=== PATIENT | male | born 1940 | race Caucasian/White ===

== ENCOUNTER 2017-12-25 15:24 | Emergency (ER) | payer BC ==
[2017-12-25] MEDS ORDERED: Meclizine HCl 25 MG TAB ONE (15:58)
[2017-12-25 15:59] LABS: Mean Corpuscular HGB CONC 34.8 g/dL (32.0-36.0); Mean Corpuscular Hemoglobin 36.5 pg (27.0-31.0); Mean Platelet Volume 6.4 fL (7.4-10.4); Platelet Count 135 thou/uL (130-400); RBC Distribution Width 11.7 % (11.5-14.5); Red Blood Cell (RBC) Count 3.29 mill/uL (4.70-6.10); White Blood Cell (WBC) Count 3.2 thou/uL (4.8-10.8)
[2017-12-25 16:17] LABS: ALT (SGPT) 20 U/L (8-55); AST (SGOT) 21 U/L (5-34); Albumin 3.9 g/dL (3.4-4.8); Alkaline Phosphatase 62 U/L (40-150); Anion Gap 13 mmol/L (10-20); BUN (Urea Nitrogen) 21 mg/dL (8.4-25.7); Bilirubin, Total 0.3 mg/dL (0.2-1.2); CK (CPK) 108 U/L (30-200); Calc. Creatinine Clearance 0 mL/min (70-130); Carbon Dioxide 20 mmol/L (23-31); Chloride 107 mmol/L (98-107); Estimated GFR-MDRD Greater than 90; Globulin 2.6 g/dL (2.4-3.5); Glucose 98 mg/dL (83-110); Protein, Total 6.5 g/dL (5.8-8.1); Sodium 136 mmol/L (136-145)
[2017-12-25 16:20] LABS: #Eosinphils 0.1 thou/uL (0.0-0.7); #Lymphocytes 1.1 thou/uL (1.20-3.40); #Monocytes 0.4 thou/uL (0.11-0.59); #Neutrophils 1.6 thou/uL (1.40-6.50); %Basophils 1.3 % (0.0-1.0); %Eosinophils 2.4 % (0.0-10.0); %Lymphocytes 34.8 % (21.0-51.0); %Monocytes 11.4 % (0.0-10.0); %Neutrophils 50.2 % (42.0-75.0); MDiff Complete? YES; Macrocytosis SLIGHT = 6-15 cells (100X) (0-5/hpf); PLT Morphology Comment Appears Adequate
--- NOTE | 2017-12-25 17:01 | CT ---
CT OF THE BRAIN WITHOUT CONTRAST: 12/25/17 COMPARISON: None. HISTORY: Dizziness that began this morning. Symptoms of stroke. COMPARISON: 01/14/05. TECHNIQUE: Multiple contiguous axial images were obtained in a CT of the brain without contrast. FINDINGS: There are a few subtle scattered hypodensities in the subcortical and periventricular white matter, l ikely secondary to small vessel ischemic disease. No large confluent infarction is seen. There is no evidence of hydrocephalus, intracranial hemorrhage, or extra-axial fluid collection. The calvarium and overlying soft tissues are unremarkable. The visualized paranasal sinuses and masto id air cells are well aerated. IMPRESSION: No evidence of acute intracranial abnormality. POS: [facility]
== END 2017-12-25 17:40 | disposition home or self-care (01) ==
LOC: ERS 15:24
DX: R42 Dizziness and giddiness (principal); Z85.07 Personal history of malignant neoplasm of pancreas; F41.9 Anxiety disorder, unspecified; Z79.899 Other long term (current) drug therapy
CPT/HCPCS: 36415; 70450; 80053; 82550; 85025; 93005

== ENCOUNTER 2018-03-15 13:44 | Outpatient (CLI) | payer BC ==
--- NOTE | 2018-03-15 15:05 | RAD ---
CHEST PA AND LATERAL: Date: 03/15/18 HISTORY: 77-year-old male with history of dyspnea. COMPARISON: 10/06/13. FINDINGS: Heart size is within normal limits. Increased linear and interstitial markings are noted bilaterally. There is no cardiomegaly. IMPRESSION: Stable appearing chronic lung changes. No acute intrathoracic disease. Atherosclerosis of aorta. POS: [facility]
== END 2018-03-15 13:45 | disposition home or self-care (01) ==
LOC: RAD 13:44
PROVIDERS: ATTEND Internal Medicine
DX: R06.00 Dyspnea, unspecified (principal); I70.0 Atherosclerosis of aorta
CPT/HCPCS: 71046

== ENCOUNTER 2018-04-11 17:00 | Outpatient (CLI) | payer BC | END 2018-04-11 17:01 | disposition home or self-care (01) | LOC: SLEEPLAB 17:00 | PROVIDERS: ATTEND Orthopaedic Surgery Sports Medicine | DX: G47.33 Obstructive sleep apnea (adult) (pediatric) (principal); E66.9 Obesity, unspecified; R06.83 Snoring; R51 Headache; R53.83 Other fatigue; K21.9 Gastro-esophageal reflux disease without esophagitis; R35.1 Nocturia; Z68.29 Body mass index [BMI] 29.0-29.9, adult | CPT/HCPCS: 95806 ==

== ENCOUNTER 2018-05-19 09:02 | Outpatient (CLI) | payer BC | END 2018-05-19 09:03 | disposition home or self-care (01) | LOC: CP 09:02 | PROVIDERS: ATTEND Internal Medicine | DX: R06.09 Other forms of dyspnea (principal); G47.33 Obstructive sleep apnea (adult) (pediatric) | CPT/HCPCS: 94060; 94727; 94729 ==

== ENCOUNTER 2019-06-08 13:16 | Outpatient (CLI) | payer BC ==
[2019-06-08 14:56] LABS: #Eosinphils 0.1 thou/uL (0.0-0.7); #Lymphocytes 1.3 thou/uL (1.20-3.40); #Monocytes 0.3 thou/uL (0.11-0.59); #Neutrophils 2.3 thou/uL (1.40-6.50); %Basophils 0.8 % (0.0-1.0); %Eosinophils 1.8 % (0.0-10.0); %Lymphocytes 31.7 % (21.0-51.0); %Monocytes 8.7 % (0.0-10.0); Hemoglobin 11.7 g/dL (14.0-18.0); Mean Corpuscular HGB CONC 33.9 g/dL (32.0-36.0); Mean Platelet Volume 6.9 fL (7.4-10.4); Platelet Count 155 thou/uL (130-400); RBC Distribution Width 11.4 % (11.5-14.5); Red Blood Cell (RBC) Count 3.24 mill/uL (4.70-6.10)
[2019-06-08 15:05] LABS: ALT (SGPT) 17 U/L (8-55); AST (SGOT) 19 U/L (5-34); Albumin 4.1 g/dL (3.4-4.8); Alkaline Phosphatase 75 U/L (40-110); Anion Gap 10 mmol/L (10-20); BUN (Urea Nitrogen) 23 mg/dL (8.4-25.7); Bilirubin, Total 0.3 mg/dL (0.2-1.2); Calc. Creatinine Clearance 0 mL/min (70-130); Calcium 8.9 mg/dL (7.8-10.44); Carbon Dioxide 27 mmol/L (23-31); Chloride 104 mmol/L (98-107); Estimated GFR-MDRD 70; Globulin 2.6 g/dL (2.4-3.5); Glucose 140 mg/dL (83-110); Potassium 4.4 mmol/L (3.5-5.1); Protein, Total 6.7 g/dL (5.8-8.1); Sodium 137 mmol/L (136-145)
== END 2019-06-08 13:17 | disposition home or self-care (01) ==
LOC: LABBT 13:16
PROVIDERS: ATTEND Internal Medicine Cardiovascular Disease
DX: Z01.812 Encounter for preprocedural laboratory examination (principal); R06.02 Shortness of breath
CPT/HCPCS: 80053; 85025

== ENCOUNTER → 2019-06-09 | Day surgery (SDC) | payer BC ==
[2019-06-08 13:30] VITALS: BMI 22.8
[~2019-06-09] MED LIST: Fentanyl 100 MCG/2 ML VIAL ONE; Heparin (Artline) 1,000 ML ONE; Midazolam HCl 2 mg/2 ml Vial ONE
== END ==
LOC: CCL 06:08
PROVIDERS: ATTEND Internal Medicine Cardiovascular Disease
PROC: 4A023N8 Measurement of Cardiac Sampling and Pressure, Bilateral, Percutaneous Approach (ICD-10-PCS; principal; 2019-06-09)
PROC: B2111ZZ Fluoroscopy of Multiple Coronary Arteries using Low Osmolar Contrast (ICD-10-PCS; principal; 2019-06-09)
DX: I25.10 Atherosclerotic heart disease of native coronary artery without angina pectoris (principal); I35.0 Nonrheumatic aortic (valve) stenosis; K21.9 Gastro-esophageal reflux disease without esophagitis; Z79.899 Other long term (current) drug therapy; Z87.891 Personal history of nicotine dependence; Z91.018 Allergy to other foods
CPT/HCPCS: C1769; J1644; J2250; J3010

== ENCOUNTER 2020-08-23 07:42 | Inpatient (IN) | payer BC, MEDICARE ==
[2020-08-23] MEDS ORDERED: Morphine 4 MG/ML VIAL ONE ×2 (08:13→09:29)
[2020-08-23 08:41] LABS: ALT (SGPT) 20 U/L (8-55); AST (SGOT) 25 U/L (5-34); Albumin 3.9 g/dL (3.4-4.8); Alkaline Phosphatase 95 U/L (40-110); Anion Gap 16 mmol/L (10-20); BUN (Urea Nitrogen) 17 mg/dL (8.4-25.7); Bilirubin, Total 0.5 mg/dL (0.2-1.2); Calc. Creatinine Clearance 0 mL/min (70-130); Calcium 8.8 mg/dL (7.8-10.44); Carbon Dioxide 21 mmol/L (23-31); Chloride 103 mmol/L (98-107); Globulin 3.1 g/dL (2.4-3.5); Glucose 188 mg/dL (83-110); Potassium 4.1 mmol/L (3.5-5.1); Sodium 136 mmol/L (136-145)
[2020-08-23 09:19] LABS: #Basophils 0.1 thou/uL (0.0-0.2); #Lymphocytes 0.2 thou/uL (1.20-3.40); #Monocytes 0.5 thou/uL (0.11-0.59); #Neutrophils 5.3 thou/uL (1.40-6.50); %Basophils 1.5 % (0.0-1.0); %Eosinophils 0.2 % (0.0-10.0); %Lymphocytes 2.6 % (21.0-51.0); %Monocytes 8.8 % (0.0-10.0); Hemoglobin 12.3 g/dL (14.0-18.0); MDiff Complete? YES; Macrocytosis SLIGHT = 6-15 cells (100X) (0-5/hpf); Mean Corpuscular Hemoglobin 34.5 pg (27.0-31.0); Mean Platelet Volume 7.3 fL (7.4-10.4); Platelet Count 99 thou/uL (130-400); Platelet Morphology Comment Appears Decreased; Polychromasia SLIGHT = 2-3 cells (100X) (0-2/hpf); RBC Distribution Width 11.8 % (11.5-14.5); Red Blood Cell (RBC) Count 3.56 mill/uL (4.70-6.10); White Blood Cell (WBC) Count 6.1 thou/uL (4.8-10.8)
[2020-08-23] MEDS ORDERED: Lidocaine 1% PF 5 ML VIAL ONE (09:32)
[2020-08-23] MEDS ORDERED: Dexamethasone 20 MG/5 ML VIAL ONE (09:32)
[2020-08-23] MEDS ORDERED: Rocuronium Bromide 10 MG/ML (10ML VIAL) ONE (09:32)
[2020-08-23] MEDS ORDERED: PROPOFOL 200 MG/20 ML VIAL ONE (09:32)
[2020-08-23] MEDS ORDERED: PHENYLEPHRINE-NS 100 MCG/ML 10 ML SYRINGE ONE (09:32)
[2020-08-23] MEDS ORDERED: Ondansetron PF 4 MG/2 ML Vial ONE (09:32)
[2020-08-23] MEDS ORDERED: Esmolol 100 MG/10 ML VIAL ONE (09:32)
[2020-08-23 10:31] LABS: SARS-CoV-2 NAA Rapid Test Not Detected (NotDetected)
[2020-08-23] MEDS ORDERED: CEFAZOLIN 2 GM in Premix Bag 1 BAG IVPB SCH (10:45)
[2020-08-23] MEDS ORDERED: Fentanyl 100 MCG/2 ML VIAL ONE ×4 (10:56→18:56)
[2020-08-23] MEDS ORDERED: Ondansetron PF 4 MG/2 ML Vial IVP PRN (11:03)
[2020-08-23] MEDS ORDERED: Ondansetron ODT 4 MG TAB PO PRN (11:03)
[2020-08-23] MEDS ORDERED: Dextrose 50% Abboject 50 ML SYRINGE SLOW IVP PRN (11:03)
[2020-08-23] MEDS ORDERED: hydrALAZINE 20 MG/ML VIAL SLOW IVP PRN (11:03)
[2020-08-23] MEDS ORDERED: Morphine 2 MG/ML VIAL SLOW IVP PRN (11:03)
[2020-08-23] MEDS ORDERED: Dextrose 5% in Water 1,000 ML IV PRN (11:03)
[2020-08-23 12:04] VITALS: BMI 26.6
[2020-08-23] MEDS: traMADol HCl 50 MG TAB PO SCH ×3 (13:17→23:32)
[2020-08-23] MEDS: Ibuprofen 600 MG TAB PO SCH ×2 (13:55→21:09)
[2020-08-23] MEDS: Gabapentin 300 MG CAP PO SCH ×2 (14:03→20:12)
[2020-08-23] MEDS ORDERED: Morphine 2 MG/ML VIAL SLOW IVP SCH (14:37)
[2020-08-23] MEDS ORDERED: HYDROcodone/Acetaminophen 10/325 mg Tablet PO PRN ×2 (15:17→21:38)
[2020-08-23] MEDS ORDERED: SUGAMMADEX SODIUM 200 MG/2 ML VIAL ONE (17:53)
[2020-08-23] MEDS: Pancrelipase DR 12,000 1 CAP PO SCH (18:05)
[2020-08-23] MEDS: Atorvastatin Calcium 20 MG TAB PO SCH (20:12)
[2020-08-23] MEDS: Famotidine 20 MG TAB PO SCH (20:12)
[2020-08-23] MEDS: CEFAZOLIN 2 GM in Premix Bag 1 BAG IVPB SCH (21:07)
[2020-08-23] MEDS: Acetaminophen 325 MG TAB PO PRN (21:10)
[2020-08-23] MEDS: traMADol HCl 50 MG TAB PO PRN (23:32)
[2020-08-24] MEDS: CEFAZOLIN 2 GM in Premix Bag 1 BAG IVPB SCH (05:28)
[2020-08-24] MEDS: traMADol HCl 50 MG TAB PO SCH ×4 (05:29→19:07)
[2020-08-24] MEDS: Ibuprofen 600 MG TAB PO SCH ×3 (05:29→21:05)
[2020-08-24 05:30] LABS: #Lymphocytes 0.4 thou/uL (1.20-3.40); #Monocytes 0.6 thou/uL (0.11-0.59); %Eosinophils 0.1 % (0.0-10.0); %Lymphocytes 6.3 % (21.0-51.0); %Monocytes 9.6 % (0.0-10.0); Hemoglobin 10.1 g/dL (14.0-18.0); Mean Corpuscular Hemoglobin 35.3 pg (27.0-31.0); Mean Platelet Volume 7.4 fL (7.4-10.4); Platelet Count 88 thou/uL (130-400); RBC Distribution Width 11.7 % (11.5-14.5); Red Blood Cell (RBC) Count 2.86 mill/uL (4.70-6.10)
[2020-08-24 05:50] LABS: Anion Gap 12 mmol/L (10-20); BUN (Urea Nitrogen) 20 mg/dL (8.4-25.7); Calc. Creatinine Clearance 72 mL/min (70-130); Calcium 7.9 mg/dL (7.8-10.44); Carbon Dioxide 27 mmol/L (23-31); Chloride 101 mmol/L (98-107); Glucose 237 mg/dL (83-110); Magnesium 2.1 mg/dL (1.6-2.6); Sodium 136 mmol/L (136-145)
[2020-08-24] MEDS: Pancrelipase DR 12,000 1 CAP PO SCH ×3 (08:33→15:24)
[2020-08-24] MEDS: Polyethylene Glycol 3350 17 GM Packet PO SCH (08:33)
[2020-08-24] MEDS: Gabapentin 300 MG CAP PO SCH ×3 (08:34→21:03)
[2020-08-24] MEDS: Multivit, Therapeutic 1 TAB PO SCH (08:34)
[2020-08-24] MEDS: Furosemide 20 MG TAB PO SCH (08:34)
[2020-08-24] MEDS: Famotidine 20 MG TAB PO SCH (08:35)
[2020-08-24] MEDS ORDERED: Linaclotide [Linzess] 290 MCG Capsule PO SCH (09:00)
[2020-08-24] MEDS: traMADol HCl 50 MG TAB PO PRN (19:07)
[2020-08-24] MEDS ORDERED: Verapamil 120 MG TAB PO SCH (21:00)
[2020-08-24] MEDS: Aspirin 81 mg Enteric Coated Tablet PO SCH (21:03)
[2020-08-24] MEDS: Atorvastatin Calcium 20 MG TAB PO SCH (21:04)
[2020-08-24] MEDS: Senokot 8.6 MG TAB PO SCH (21:04)
[2020-08-25] MEDS: traMADol HCl 50 MG TAB PO SCH ×5 (00:22→23:15)
[2020-08-25] MEDS: traMADol HCl 50 MG TAB PO PRN ×4 (05:20→23:15)
[2020-08-25] MEDS: Ibuprofen 600 MG TAB PO SCH ×2 (05:20→15:26)
[2020-08-25 05:43] LABS: #Eosinphils 0.1 thou/uL (0.0-0.7); #Lymphocytes 0.8 thou/uL (1.20-3.40); #Monocytes 0.5 thou/uL (0.11-0.59); #Neutrophils 3.4 thou/uL (1.40-6.50); %Basophils 0.3 % (0.0-1.0); %Eosinophils 1.9 % (0.0-10.0); %Lymphocytes 16.9 % (21.0-51.0); %Monocytes 10.1 % (0.0-10.0); %Neutrophils 70.8 % (42.0-75.0); Hemoglobin 8.5 g/dL (14.0-18.0); Mean Corpuscular HGB CONC 33.7 g/dL (32.0-36.0); Mean Corpuscular Hemoglobin 35.6 pg (27.0-31.0); Mean Platelet Volume 7.3 fL (7.4-10.4); Platelet Count 75 thou/uL (130-400); RBC Distribution Width 11.7 % (11.5-14.5); Red Blood Cell (RBC) Count 2.39 mill/uL (4.70-6.10); White Blood Cell (WBC) Count 4.8 thou/uL (4.8-10.8)
[2020-08-25 05:45] LABS: Hemoglobin A1c 6.2 % (4.0-6.0)
[2020-08-25 06:00] LABS: Magnesium 2.2 mg/dL (1.6-2.6); Phosphorus 2.3 mg/dL (2.3-4.7)
[2020-08-25] MEDS: Gabapentin 300 MG CAP PO SCH ×3 (08:18→21:08)
[2020-08-25] MEDS: Multivit, Therapeutic 1 TAB PO SCH (08:19)
[2020-08-25] MEDS: Furosemide 20 MG TAB PO SCH (08:19)
[2020-08-25] MEDS: Aspirin 81 mg Enteric Coated Tablet PO SCH (08:19)
[2020-08-25] MEDS: Polyethylene Glycol 3350 17 GM Packet PO SCH (08:20)
[2020-08-25] MEDS: Pancrelipase DR 12,000 1 CAP PO SCH ×3 (09:09→18:10)
[2020-08-25] MEDS ORDERED: Fioricet 325/50/40 mg Tablet PO PRN (13:13)
[2020-08-25] MEDS ORDERED: Sodium Phosphate 30 MMOL in Sodium Chloride 0.9% 250 ML 250 ML IVPB SCH (13:15)
[2020-08-25] MEDS ORDERED: Verapamil 120 MG TAB PO PRN (13:20)
[2020-08-25] MEDS ORDERED: Dextrose 5% in Water 1,000 ML IV PRN (13:22)
[2020-08-25] MEDS ORDERED: Insulin Regular 300 UNITS/3 ML VIAL SC PRN (13:22)
[2020-08-25] MEDS ORDERED: Dextrose 50% Abboject 50 ML SYRINGE SLOW IVP PRN (13:22)
[2020-08-25] MEDS: PHOS-NAK 1 PKT PACK PO SCH (21:06)
[2020-08-25] MEDS: Atorvastatin Calcium 20 MG TAB PO SCH (21:07)
[2020-08-25] MEDS: Senokot 8.6 MG TAB PO SCH (21:07)
[2020-08-25] MEDS: Ferrous Sulfate 325 MG TAB PO SCH (21:07)
[2020-08-25] MEDS: Ascorbic Acid 500 mg Chewable Tablet PO SCH (21:08)
[2020-08-26] MEDS: traMADol HCl 50 MG TAB PO PRN ×2 (05:36→16:05)
[2020-08-26] MEDS: traMADol HCl 50 MG TAB PO SCH ×2 (05:36→12:36)
[2020-08-26 06:19] LABS: #Eosinphils 0.1 thou/uL (0.0-0.7); #Lymphocytes 0.5 thou/uL (1.20-3.40); #Monocytes 0.5 thou/uL (0.11-0.59); #Neutrophils 3.3 thou/uL (1.40-6.50); %Basophils 0.1 % (0.0-1.0); %Eosinophils 3.2 % (0.0-10.0); %Lymphocytes 10.3 % (21.0-51.0); %Monocytes 11.7 % (0.0-10.0); %Neutrophils 74.7 % (42.0-75.0); Hemoglobin 8.5 g/dL (14.0-18.0); Mean Corpuscular HGB CONC 34.2 g/dL (32.0-36.0); Mean Corpuscular Hemoglobin 35.7 pg (27.0-31.0); Mean Platelet Volume 7.3 fL (7.4-10.4); Platelet Count 87 thou/uL (130-400); RBC Distribution Width 11.6 % (11.5-14.5); Red Blood Cell (RBC) Count 2.39 mill/uL (4.70-6.10); White Blood Cell (WBC) Count 4.5 thou/uL (4.8-10.8)
[2020-08-26 06:40] LABS: Anion Gap 12 mmol/L (10-20); BUN (Urea Nitrogen) 14 mg/dL (8.4-25.7); Calc. Creatinine Clearance 91 mL/min (70-130); Carbon Dioxide 28 mmol/L (23-31); Chloride 101 mmol/L (98-107); Glucose 186 mg/dL (83-110); Magnesium 2.1 mg/dL (1.6-2.6); Phosphorus 3.1 mg/dL (2.3-4.7); Potassium 3.8 mmol/L (3.5-5.1); Sodium 137 mmol/L (136-145)
[2020-08-26] MEDS ORDERED: Potassium Chloride 20 MEQ TAB PO SCH (07:45)
[2020-08-26] MEDS: Pancrelipase DR 12,000 1 CAP PO SCH ×2 (09:44→12:38)
[2020-08-26] MEDS: Gabapentin 300 MG CAP PO SCH ×2 (09:45→16:04)
[2020-08-26] MEDS: Ferrous Sulfate 325 MG TAB PO SCH (09:45)
[2020-08-26] MEDS: Polyethylene Glycol 3350 17 GM Packet PO SCH (09:45)
[2020-08-26] MEDS: Furosemide 20 MG TAB PO SCH (09:46)
[2020-08-26] MEDS: Ascorbic Acid 500 mg Chewable Tablet PO SCH (09:46)
[2020-08-26] MEDS: PHOS-NAK 1 PKT PACK PO SCH (09:46)
[2020-08-26] MEDS: Multivit, Therapeutic 1 TAB PO SCH (09:47)
[2020-08-26] MEDS ORDERED: Bisacodyl 10 MG SUPP PR STA (12:50)
[2020-08-26] MEDS ORDERED: Ibuprofen 200 MG TAB PO SCH (14:00)
[2020-08-26 15:43] VITALS: BP 108/59; TEMP 98.4
[2020-08-26] MEDS: Acetaminophen 325 MG TAB PO PRN (16:04)
[2020-08-26] MEDS ORDERED: Ferrous Sulfate 325 MG TAB PO SCH (17:00)
[2020-08-26] MEDS ORDERED: Enoxaparin Sodium 40 MG/0.4 ML SYRINGE SC SCH (21:00)
[2020-08-26] MEDS ORDERED: Aspirin 81 mg Enteric Coated Tablet PO SCH (21:00)
== END 2020-08-26 17:30 | disposition home or self-care (01) | DRG 481 ==
LOC: ERS 07:42 → SURG A 09:22
PROVIDERS: ADMIT Specialist; ATTEND Specialist
PROC: 0QS736Z Reposition Left Upper Femur with Intramedullary Internal Fixation Device, Percutaneous Approach (ICD-10-PCS; principal; 2020-08-23)
DX: S72.142A Displaced intertrochanteric fracture of left femur, initial encounter for closed fracture (principal); D62 Acute posthemorrhagic anemia; S72.042A Displaced fracture of base of neck of left femur, initial encounter for closed fracture; Z20.822 Contact with and (suspected) exposure to COVID-19; E78.5 Hyperlipidemia, unspecified; F41.9 Anxiety disorder, unspecified; G89.29 Other chronic pain; I44.7 Left bundle-branch block, unspecified; Z96.652 Presence of left artificial knee joint; K21.9 Gastro-esophageal reflux disease without esophagitis; W01.0XXA Fall on same level from slipping, tripping and stumbling without subsequent striking against object, initial encounter; K59.00 Constipation, unspecified; Y92.009 Unspecified place in unspecified non-institutional (private) residence as the place of occurrence of the external cause; Z85.07 Personal history of malignant neoplasm of pancreas; Z95.2 Presence of prosthetic heart valve; Z79.899 Other long term (current) drug therapy; Z90.49 Acquired absence of other specified parts of digestive tract
CPT/HCPCS: 0240U; 36415; 36416; 72170; 74018; 76000; 80048; 80053; 82533; 82550; 83036; 83735; 84100; 85025; 86850; 86900; 86901; 93005; 96374; 96375; 96376; C1713; G0390; J0690; J1100; J2270; J2405; J2704; J3010; J7050; Q0162

== ENCOUNTER 2021-11-18 14:30 | Outpatient (CLI) | payer MEDICARE, BC ==
[~2021-11-18 14:30] MED LIST changes: -Fentanyl 100 MCG/2 ML VIAL ONE; -Heparin (Artline) 1,000 ML ONE; +ISOVUE-370 76% 1 ML ONE; -Midazolam HCl 2 mg/2 ml Vial ONE
[2021-11-18 16:43] LABS: Estimated GFR-MDRD - POC Greater than 90
== END 2021-11-18 14:31 | disposition home or self-care (01) ==
LOC: BICCT 14:30
PROVIDERS: ATTEND Urology
DX: R31.0 Gross hematuria (principal); I25.10 Atherosclerotic heart disease of native coronary artery without angina pectoris; I70.0 Atherosclerosis of aorta; Z98.890 Other specified postprocedural states
CPT/HCPCS: 74178; 82565

== ENCOUNTER 2022-01-05 10:59 | Outpatient (CLI) | payer MEDICARE, BC ==
[2022-01-05 12:04] LABS: Mean Corpuscular Hemoglobin 35.8 pg (27.0-33.0); Mean Corpuscular Volume 102.4 fl (81.2-95.1); Mean Platelet Volume 9.4 fl (7.4-10.4); Platelet Count 128 10x3/uL (150-450); RBC Distribution Width 12.2 % (11.5-14.5); Red Blood Cell (RBC) Count 3.35 10x6/uL (4.32-5.72)
[2022-01-05 12:25] LABS: Anion Gap 12 mmol/L (10-20); BUN (Urea Nitrogen) 16 mg/dL (8.4-25.7); Calc. Creatinine Clearance 0 mL/min (70-130); Calcium 9.1 mg/dL (7.8-10.44); Carbon Dioxide 28 mmol/L (23-31); Chloride 101 mmol/L (98-107); Estimated GFR 88; Glucose 81 mg/dL (83-110); Potassium 4.1 mmol/L (3.5-5.1); Sodium 137 mmol/L (136-145)
[2022-01-05 12:28] LABS: PTT 25.4 sec (22.0-33.0); Prothrombin Time 10.5 sec (9.5-12.1)
[2022-01-05 12:43] LABS: Bilirubin Neg (Negative); Blood, Urine 250 (Negative); Clarity Slightly Cloudy (Clear); Glucose, Urine (Dipstick) Normal (Negative); Ketone, Urine Negative (Negative); Leukocyte Negative (Negative); Nitrite Negative (Negative); Protein, Urine (Dipstick) 30 mg/dl (Neg-Trace); Specific Gravity, Urine 1.015 (1.002-1.036); Urobilinogen Normal mg/dL (Less than 2)
[2022-01-05 13:24] LABS: Bacteria/HPF Rare-Few HPF (None Seen); RBC/HPF Greater than 50 HPF (0-3); Squamous Epithelial 0-3 HPF (0-3); WBC/HPF 0-3 HPF (0-3)
== END 2022-01-05 11:00 | disposition home or self-care (01) ==
LOC: LABBT 10:59
PROVIDERS: ATTEND Urology
DX: Z01.818 Encounter for other preprocedural examination (principal); Z20.822 Contact with and (suspected) exposure to COVID-19
CPT/HCPCS: 80048; 81001; 85027; 85610; 85730; 87086; 87811; 93005; 93010

== ENCOUNTER 2022-01-08 05:43 | Day surgery (SDC) | payer MEDICARE, BC ==
[2022-01-06 15:27] VITALS: BMI 22.8
[2022-01-08] MEDS ORDERED: mitoMYcin 40 MG in Sterile Water 20 ML I-VESIC SCH (06:30)
[2022-01-08] MEDS ORDERED: Fentanyl 100 MCG/2 ML VIAL ONE (07:26)
[2022-01-08] MEDS ORDERED: Levofloxacin 500 mg/D5W 100 ml Premix Bag ONE (07:27)
[2022-01-08] MEDS ORDERED: Ondansetron PF 4 MG/2 ML Vial ONE (07:30)
[2022-01-08] MEDS ORDERED: Lidocaine 1% PF 5 ML VIAL ONE (07:30)
[2022-01-08] MEDS ORDERED: Dexamethasone 20 MG/5 ML VIAL ONE (07:30)
[2022-01-08] MEDS ORDERED: PROPOFOL 200 MG/20 ML VIAL ONE (07:30)
[2022-01-08] MEDS ORDERED: Glycopyrrolate 0.2 MG/ML 5 ML SYRINGE ONE (07:30)
[2022-01-08] MEDS ORDERED: PHENYLEPHRINE-NS 100 MCG/ML 10 ML SYRINGE ONE (07:30)
[2022-01-08] MEDS ORDERED: B & O ONE (08:03)
[2022-01-08] MEDS ORDERED: Oxybutynin 5 MG TAB ONE (08:31)
== END 2022-01-08 13:38 | disposition home or self-care (01) ==
LOC: SDC 05:43
PROVIDERS: ATTEND Urology
PROC: 0TBB8ZZ Excision of Bladder, Via Natural or Artificial Opening Endoscopic (ICD-10-PCS; principal; 2022-01-08)
DX: C67.0 Malignant neoplasm of trigone of bladder (principal); R31.0 Gross hematuria; E29.1 Testicular hypofunction; Z79.899 Other long term (current) drug therapy; Z91.018 Allergy to other foods; Z85.07 Personal history of malignant neoplasm of pancreas
CPT/HCPCS: 52235; J9280; 88307; J1100; J1956; J2405; J2704; J2710; J3010

== ENCOUNTER 2022-02-10 11:19 | Outpatient (CLI) | payer MEDICARE, BC ==
[2022-02-10 12:14] LABS: Bilirubin Neg (Negative); Blood, Urine Negative (Negative); Clarity Clear (Clear); Glucose, Urine (Dipstick) 50 mg/dL (Negative); Ketone, Urine Negative (Negative); Leukocyte Negative (Negative); Nitrite Negative (Negative); Protein, Urine (Dipstick) Negative (Neg-Trace); Specific Gravity, Urine 1.015 (1.002-1.036); Urobilinogen Normal mg/dL (Less than 2)
[2022-02-10 12:24] LABS: Bacteria/HPF None Seen HPF (None Seen); Squamous Epithelial 0-3 HPF (0-3); WBC/HPF 0-3 HPF (0-3)
[2022-02-10 12:24] LABS: Hemoglobin 11.6 g/dL (13.5-17.5); Mean Corpuscular Hemoglobin 35.2 pg (27.0-33.0); Mean Corpuscular Volume 103.3 fl (81.2-95.1); Mean Platelet Volume 9.1 fl (7.4-10.4); Platelet Count 134 10x3/uL (150-450); RBC Distribution Width 12.1 % (11.5-14.5); White Blood Cell (WBC) Count 3.9 10x3/uL (3.5-10.5)
[2022-02-10 12:35] LABS: Anion Gap 14 mmol/L (10-20); BUN (Urea Nitrogen) 16 mg/dL (8.4-25.7); Calc. Creatinine Clearance 0 mL/min (70-130); Calcium 9.2 mg/dL (7.8-10.44); Carbon Dioxide 24 mmol/L (23-31); Chloride 104 mmol/L (98-107); Estimated GFR 80; Glucose 176 mg/dL (83-110); PTT 25.6 sec (22.0-33.0); Potassium 4.6 mmol/L (3.5-5.1); Prothrombin Time 10.8 sec (9.5-12.1); Sodium 137 mmol/L (136-145)
== END 2022-02-10 11:20 | disposition home or self-care (01) ==
LOC: LABBT 11:19
PROVIDERS: ATTEND Urology
DX: Z01.818 Encounter for other preprocedural examination (principal); Z20.822 Contact with and (suspected) exposure to COVID-19
CPT/HCPCS: 80048; 81001; 85027; 85610; 85730; 87086; 87811; 93005; 93010

== ENCOUNTER 2022-11-04 14:12 | Outpatient (CLI) | payer MEDICARE, BC ==
[~2022-11-04 14:12] MED LIST changes: -ISOVUE-370 76% 1 ML ONE; +Iopamidol 370 76% 100 ML VIAL ONE
== END 2022-11-04 14:13 | disposition home or self-care (01) ==
LOC: BICCT 14:12
PROVIDERS: ATTEND Urology
DX: C67.0 Malignant neoplasm of trigone of bladder (principal); N32.3 Diverticulum of bladder
CPT/HCPCS: 74178; 82565; Q9967

== ENCOUNTER 2024-06-20 07:26 | Outpatient (CLI) | payer MEDICARE | END 2024-06-20 07:27 | disposition home or self-care (01) | LOC: CT 07:26 | PROVIDERS: ATTEND Internal Medicine Gastroenterology | DX: K22.70 Barrett's esophagus without dysplasia (principal); K86.81 Exocrine pancreatic insufficiency; K59.09 Other constipation; R63.4 Abnormal weight loss; K76.0 Fatty (change of) liver, not elsewhere classified; M85.88 Other specified disorders of bone density and structure, other site; M43.8X6 Other specified deforming dorsopathies, lumbar region; M43.8X4 Other specified deforming dorsopathies, thoracic region; Z85.07 Personal history of malignant neoplasm of pancreas | CPT/HCPCS: 36415; 71260; 74177; 82565 ==